=== PATIENT | female | born 1990 | race Caucasian/White ===

== ENCOUNTER 2017-11-24 12:43 | Emergency (ER) | payer BC ==
--- NOTE | 2017-11-24 13:07 | EDM.PDOC ---
ED HPI GENERAL MEDICAL PROBLEM - General Chief Complaint: Lower Extremity Injury/Pain Stated Complaint: RIGHT ANKLE PAIN Time Seen by Provider: 11/24/17 12:45 Source of Information: Reports: Patient History Limitations: Reports: No Limitations - History of Present Illness INITIAL COMMENTS - FREE TEXT/NARRATIVE: HISTORY AND PHYSICAL: History of present illness: Patient is a 27-year-old female who presents to the emergency room with complaints of right ankle pain. She states she was walking down some steps when she stepped wrong and rolled the right ankle. Since that time has had increased pain with ambulation, but is able to ambulate without difficulty. Denies any numbness or tingling to the affected extremity. Denies any previous injury, trauma or surgeries to the affected extremity. Denies hitting her head or any loss of consciousness related to the fall. Review of systems: As per history of present illness and below otherwise all systems reviewed and negative. Past medical history: As per history of present illness and as reviewed below otherwise noncontributory. Surgical history: As per history of present illness and as reviewed below otherwise noncontributory. Social history: No reported history of drug or alcohol abuse. Family history: As per history of present illness and as reviewed below otherwise noncontributory. Physical exam: General: Well-developed and well-nourished 27-year-old female. Alert and oriented. Nontoxic appearing and in no acute distress. HEENT: Atraumatic, normocephalic, pupils reactive, negative for conjunctival pallor or scleral icterus, mucous membranes moist, throat clear, neck supple, nontender, trachea midline. Lungs: Clear to auscultation, breath sounds equal bilaterally, chest nontender. Heart: S1S2, regular, negative for clicks, rubs, or JVD. Abdomen: Soft, nondistended, nontender. Negative for masses or hepatosplenomegaly. Negative for costovertebral tenderness. Pelvis: Stable nontender. Genitourinary: Deferred. Rectal: Deferred. Extremities: Moves all extremities per self without difficulty or deficits. No joint instability noted. Good flexion and extension of the affected extremity. Strong pedal pulse. Capillary refill less than 3 seconds, CMS intact. Mild tenderness to the medial right malleolus. She is negative for cords or calf pain. Neurovascular unremarkable. Neuro: Awake, alert, oriented. Cranial nerves II through XII unremarkable. Cerebellum unremarkable. Motor and sensory unremarkable throughout. Exam nonfocal. X-ray shows no acute dislocation or fracture. There is mild thickening of the distal Achilles tendon which contains punctate calcifications. Will place patient in a stirrup splint and provided with crutches. (History of achilles tendon surgery in past). Stirrup splint and crutches have been given. Supportive care measures were discussed and reviewed with patient. She voices understanding and is agreeable to plan of care. Denies any further questions at this time. Diagnostics: X-ray right ankle Therapeutics: Ice, stirrup splint, crutches Impression: Right ankle injury Plan: 1. X-ray shows no dislocation or fracture. Please use the stirrup splint and crutches for the next 3-5 days. Rest, ice, elevate the extremity. 2. Diclofenac has been prescribed for pain management. You may take this up to 3 times daily. Do not take with any additional NSAID such as ibuprofen or Aleve. Please take with food. Tylenol as needed for pain management. 3. Follow up with her primary caregiver or the orthopedic provider if needed in the next couple days. Return to the ED as needed and as discussed. Definitive disposition and diagnosis as appropriate pending reevaluation and review of above. Onset: Today Duration: Hour(s): Location: Reports: Lower Extremity, Right Right Ankle Pain Score (Numeric/FACES): 7 - Related Data Allergies Allergy/AdvReac Type Severity Reaction Status Date / Time No Known Allergies Allergy Verified 11/24/17 12:54 Home Meds: Home Meds buPROPion HCl [Wellbutrin Xl] 150 mg PO DAILY 11/24/17 [History] Past Medical History HEENT History: Reports: None Cardiovascular History: Reports: None Respiratory History: Reports: None Genitourinary History: Reports: None Musculoskeletal History: Reports: None Neurological History: Reports: None Psychiatric History: Reports: Anxiety Oncologic (Cancer) History: Reports: None - Infectious Disease History Infectious Disease History: Reports: Chicken Pox - Past Surgical History Head Surgeries/Procedures: Reports: None HEENT Surgical History: Reports: Adenoidectomy, Tonsillectomy Female Surgical History: Reports: Section Other Musculoskeletal Surgeries/Procedures:: Right Achilles Tendon Repair 2012 Social & Family History - Family History Family Medical History: Noncontributory - Tobacco Use Smoking Status *Q: Current Every Day Smoker Years of Tobacco use: 6 Packs/Tins Daily: 0.2 Used Tobacco, but Quit: No Second Hand Smoke Exposure: No - Caffeine Use Caffeine Use: Reports: Energy Drinks - Alcohol Use Days Per Week of Alcohol Use: 0 - Recreational Drug Use Recreational Drug Use: No Review of Systems - Review of Systems Review Of Systems: ROS reveals no pertinent complaints other than HPI. ED EXAM, GENERAL - Physical Exam Exam: See Below (See dictation) Course - Vital Signs Last Recorded V/S: Last Vital Signs Temp 97.4 F 11/24/17 12:56 Pulse 77 11/24/17 12:56 Resp 15 11/24/17 12:56 BP 114/59 L 11/24/17 12:56 Pulse Ox 98 11/24/17 12:56 Departure - Departure Time of Disposition: 13:53 Disposition: Home, Self-Care 01 Clinical Impression: Ankle injury Qualifiers: Encounter type: initial encounter Laterality: right Qualified Code(s): S99.911A - Unspecified injury of right ankle, initial encounter - Discharge Information Referrals: Dave Liao MD [Primary Care Provider] - Forms: ED Department Discharge Additional Instructions: The following information is given to patients seen in the emergency department who are being discharged to home. This information is to outline your options for follow-up care. We provide all patients seen in our emergency department with a follow-up referral. The need for follow-up, as well as the timing and circumstances, are variable depending upon the specifics of your emergency department visit. If you don't have a primary care physician on staff, we will provide you with a referral. We always advise you to contact your personal physician following an emergency department visit to inform them of the circumstance of the visit and for follow-up with them and/or the need for any referrals to a consulting specialist. The emergency department will also refer you to a specialist when appropriate. This referral assures that you have the opportunity for follow-up care with a specialist. All of these measure are taken in an effort to provide you with optimal care, which includes your follow-up. Under all circumstances we always encourage you to contact your private physician who remains a resource for coordinating your care. When calling for follow-up care, please make the office aware that this follow-up is from your recent emergency room visit. If for any reason you are refused follow-up, please contact the [facility] Emergency Department at and asked to speak to the emergency department charge nurse. [facility] [address] [place] [id number] 1. X-ray shows no dislocation or fracture. Please use the stirrup splint and crutches for the next 3-5 days. Rest, ice, elevate the extremity. 2. Diclofenac has been prescribed for pain management. You may take this up to 3 times daily. Do not take with any additional NSAID such as ibuprofen or Aleve. Please take with food. Tylenol as needed for pain management. 3. Follow up with her primary caregiver or the orthopedic provider if needed in the next couple days. Return to the ED as needed and as discussed.
--- NOTE | 2017-11-24 13:39 | CR ---
EXAMINATION: Right ankle HISTORY: Pain COMPARISON: 05/26/2016 TECHNIQUE: 3 views FINDINGS/IMPRESSION: There is no acute osseous abnormality, dislocation, or fracture. Bone mineraliza tion, ankle mortise and joint spaces appear preserved. Mild thickening of the distal Achilles tendon containing punctate calcifications, correlate clinically for focal pain.
[2017-11-24 14:04] VITALS: BP 118/63
== END 2017-11-24 14:01 | disposition home or self-care (01) ==
LOC: MW.ED 12:43
DX: S99.911A Unspecified injury of right ankle, initial encounter (principal); F17.210 Nicotine dependence, cigarettes, uncomplicated; Z79.899 Other long term (current) drug therapy; X58.XXXA Exposure to other specified factors, initial encounter
CPT/HCPCS: 73610-26-RT; 73610-RT; 99283

== ENCOUNTER 2018-05-28 18:48 | Emergency (ER) | payer BC ==
[2018-05-28] MEDS ORDERED: Albuterol/Ipratropium 3.0-0.5 MG/3 ML Neb Soln NEB ONE ×2 (19:04→20:10)
--- NOTE | 2018-05-28 19:09 | EDM.PDOC ---
ED HPI GENERAL MEDICAL PROBLEM - General Chief Complaint: Respiratory Problem Stated Complaint: COUGHING AND WHEEZING Time Seen by Provider: 05/28/18 19:07 Source of Information: Reports: Patient History Limitations: Reports: No Limitations - History of Present Illness INITIAL COMMENTS - FREE TEXT/NARRATIVE: HISTORY AND PHYSICAL: History of present illness: Patient is a 28-year-old female here with complaint of wheezing and cough 1 week. She has a history of asthma and states she has been using in her inhaler which does not seem to be helping any longer. She thinks her asthma is exacerbated due to the smoke in the air. She states her chest feels tight but denies any chest pain. Any fevers or chills. She states she had some vomiting and diarrhea yesterday that has since resolved. Review of systems: As per history of present illness and below otherwise all systems reviewed and negative. Past medical history: As per history of present illness and as reviewed below otherwise noncontributory. Surgical history: As per history of present illness and as reviewed below otherwise noncontributory. Social history: No reported history of drug or alcohol abuse. Family history: As per history of present illness and as reviewed below otherwise noncontributory. Physical exam: General: Patient sitting comfortably in no acute distress and nontoxic appearing HEENT: Atraumatic, normocephalic, pupils reactive, negative for conjunctival pallor or scleral icterus, mucous membranes moist, throat clear, neck supple, nontender, trachea midline. No meningeal signs. Lungs: Breath sounds diminished with end expiratory wheezing throughout all lung ruiz, breath sounds equal bilaterally, chest nontender. Heart: S1S2, regular, negative for clicks, rubs, or overt murmur. Abdomen: Soft, nondistended, nontender. Negative for masses or hepatosplenomegaly. Negative for costovertebral tenderness. Pelvis: Stable nontender. Genitourinary: Deferred. Rectal: Deferred. Extremities: Atraumatic, negative for cords or calf pain. Neurovascular unremarkable. Neuro: Awake, alert, oriented. Cranial nerves II through XII unremarkable. Cerebellum unremarkable. Motor and sensory unremarkable throughout. Exam nonfocal. Notes: Patient reports improvement in SOB and chest tightness after second DuoNeb treatment. Diagnostics: Chest x-ray Therapeutics: DuoNeb x 2 Solu-medrol 125mg IM Prescriptions: Medrol dosepak Impression: Asthma exacerbation Plan: 1. Continue rescue inhaler as needed and take medrol dosepak as instructed. 2. Follow up with primary care provider 3. Return to ED as needed as discussed. Definitive disposition and diagnosis as appropriate pending reevaluation and review of above. - Related Data Allergies Allergy/AdvReac Type Severity Reaction Status Date / Time No Known Allergies Allergy Verified 05/28/18 19:03 Home Meds: Home Meds Albuterol [Ventolin HFA] 1 puff INH ASDIRECTED PRN 05/28/18 [History] methylPREDNISolone [Medrol] 4 mg PO ASDIRECTED #1 dospk 05/28/18 [Rx] Past Medical History HEENT History: Reports: None Cardiovascular History: Reports: None Respiratory History: Reports: None Genitourinary History: Reports: None Musculoskeletal History: Reports: None Neurological History: Reports: None Psychiatric History: Reports: Anxiety Oncologic (Cancer) History: Reports: None - Infectious Disease History Infectious Disease History: Reports: Chicken Pox - Past Surgical History Head Surgeries/Procedures: Reports: None HEENT Surgical History: Reports: Adenoidectomy, Tonsillectomy Female Surgical History: Reports: Section Other Musculoskeletal Surgeries/Procedures:: Right Achilles Tendon Repair 2012 Social & Family History - Family History Family Medical History: Noncontributory - Caffeine Use Caffeine Use: Reports: Energy Drinks ED ROS GENERAL - Review of Systems Review Of Systems: ROS reveals no pertinent complaints other than HPI. ED EXAM, GENERAL - Physical Exam Exam: See Below (see dictation) Course - Vital Signs Last Recorded V/S: Last Vital Signs Temp 36.1 C 05/28/18 18:48 Pulse 100 05/28/18 18:48 Resp 18 05/28/18 18:48 BP 113/67 05/28/18 18:48 Pulse Ox 96 05/28/18 18:48 - Orders/Labs/Meds Orders: Active Orders 24 hr Category Date Time Status RT Aerosol Therapy [RC] ASDIRECTED Care 05/28/18 19:04 Active RT Aerosol Therapy [RC] ASDIRECTED Care 05/28/18 20:10 Active Chest 1V Frontal [CR] Stat Exams 05/28/18 19:07 Taken Meds: Medications Discontinued Medications Generic Name Dose Route Start Last Admin Trade Name Freq PRN Reason Stop Dose Admin Albuterol/Ipratropium 3 ml 05/28/18 19:04 05/28/18 19:24 Duoneb 3.0-0.5 Mg/3 Ml NEB 05/28/18 19:05 3 ml ONETIME ONE Administration Albuterol/Ipratropium 3 ml 05/28/18 20:10 05/28/18 20:30 Duoneb 3.0-0.5 Mg/3 Ml NEB 05/28/18 20:11 3 ml ONETIME ONE Administration Methylprednisolone Sodium Succinate 125 mg 05/28/18 20:10 05/28/18 20:26 Solu-Medrol IM 05/28/18 20:11 125 mg ONETIME ONE Administration Departure - Departure Time of Disposition: 20:42 Disposition: Home, Self-Care 01 Condition: Good Clinical Impression: Asthma exacerbation - Discharge Information Prescriptions: methylPREDNISolone [Medrol] 4 mg PO ASDIRECTED #1 dospk Referrals: Dinah López DOCUMENTATION SUPERVISOR [Primary Care Provider] - Forms: ED Department Discharge Additional Instructions: The following information is given to patients seen in the emergency department who are being discharged to home. This information is to outline your options for follow-up care. We provide all patients seen in our emergency department with a follow-up referral. The need for follow-up, as well as the timing and circumstances, are variable depending upon the specifics of your emergency department visit. If you don't have a primary care physician on staff, we will provide you with a referral. We always advise you to contact your personal physician following an emergency department visit to inform them of the circumstance of the visit and for follow-up with them and/or the need for any referrals to a consulting specialist. The emergency department will also refer you to a specialist when appropriate. This referral assures that you have the opportunity for follow-up care with a specialist. All of these measure are taken in an effort to provide you with optimal care, which includes your follow-up. Under all circumstances we always encourage you to contact your private physician who remains a resource for coordinating your care. When calling for follow-up care, please make the office aware that this follow-up is from your recent emergency room visit. If for any reason you are refused follow-up, please contact the [facility] Emergency Department at and asked to speak to the emergency department charge nurse. [facility] [address] [place] [address] [facility] [address] [place] [address] 1. Continue rescue inhaler as needed and take medrol dosepak as instructed. 2. Follow up with primary care provider 3. Return to ED as needed as discussed. - My Orders Last 24 Hours: My Active Orders 05/28/18 19:04 RT Aerosol Therapy [RC] ASDIRECTED 05/28/18 19:07 Chest 1V Frontal [CR] Stat 05/28/18 20:10 RT Aerosol Therapy [RC] ASDIRECTED - Assessment/Plan Last 24 Hours: My Active Orders 05/28/18 19:04 RT Aerosol Therapy [RC] ASDIRECTED 05/28/18 19:07 Chest 1V Frontal [CR] Stat 05/28/18 20:10 RT Aerosol Therapy [RC] ASDIRECTED
[2018-05-28] MEDS ORDERED: methylPREDNISolone Sodium Succinate 125 MG/2 ML SDV IM ONE (20:10)
[2018-05-28 20:51] VITALS: BP 128/60
--- NOTE | 2018-05-30 12:09 | CR ---
EXAM DATE: 05/28/18 PATIENT'S AGE: 28 Patient: LIA JANE Facility: [place], [place] Site . Site : 1990 Study: XRay Chest [id number]/25/2018 8:01:14 PM Ordering Physician: Doctor Meyer Final Report: INDICATION: pain/sob/cough INDICATION: Shortness of breath. TECHNIQUE: Chest 1 view. COMPARISON: None FINDINGS: Cardiovascular and mediastinum: Heart size and vasculature are normal in caliber and appearance. Mediastinum is within normal limits. Lungs and pleural space: Lungs are clear. No sign of infiltrate or mass. No sign of pleural effusion. No pneumothorax. Bones and soft tissues: No significant findings. IMPRESSION: Lungs are clear. Dictated by Josef Simon MD @ 05/28/2018 8:02:51 PM Dictated by: Josef Simon MD @ 05/28/2018 20:02:57 (Electronic Signature) Report Signed by Proxy. REAGAN
== END 2018-05-28 20:51 | disposition home or self-care (01) ==
LOC: MW.ED 18:48
DX: J45.901 Unspecified asthma with (acute) exacerbation (principal)
CPT/HCPCS: 71045; 94640; 96372; 99285; J2930; 99283; J7620-GY

== ENCOUNTER 2019-07-08 19:36 | Emergency (ER) | payer SELFPAY ==
[2019-07-08] MEDS ORDERED: Albuterol/Ipratropium 3.0-0.5 MG/3 ML Neb Soln NEB ONE (19:58)
[2019-07-08] MEDS ORDERED: methylPREDNISolone Sodium Succinate 125 MG/2 ML SDV IM ONE (20:25)
--- NOTE | 2019-07-08 20:31 | CR ---
INDICATION: cough, sob TECHNIQUE: Chest 2 views. COMPARISON: None. FINDINGS: Cardiovascular and mediastinum: Heart size and vasculature are normal in caliber and appearance. Mediastinum is within normal limits. Lungs and pleural spaces: Lungs are clear. No sign of infiltrate or mass. No sign of pleural effusion. No pneumothorax. Bones and soft tissues: No significant findings. IMPRESSION: Unremarkable chest. Dictated by: Richard Tomas MD @ 07/08/2019 20:30:20 (Electronically Signed)
--- NOTE | 2019-07-08 20:43 | EDM.PDOC ---
ED HPI GENERAL MEDICAL PROBLEM - General Chief Complaint: Respiratory Problem Stated Complaint: COLD SYMPTOMS Time Seen by Provider: 07/08/19 19:42 Source of Information: Reports: Patient History Limitations: Reports: No Limitations - History of Present Illness INITIAL COMMENTS - FREE TEXT/NARRATIVE: HISTORY AND PHYSICAL: History of present illness: Agent is a 29-year-old female presenting to the emergency room for cough. Patient states she has been sick for one week with symptoms of productive cough that is greenish to brown/yellow, sinus congestion, ear pain, headache. She states she "started to feel better on Wednesday/Wednesday and then it hit me like a ton of bricks on ". Patient has been taking DayQuil and NyQuil without relief. She states her generalized overall pain is a 5 out of 10 describing it as "just enough to be annoying". She is short of breath. She has been monitoring her temperatures at home and has been having insistent 101 temperatures and subjective chills. She is a smoker, however she stated she was trying to quit prior to her illness, however due to her being so sick she hasn' t been smoking for the past couple days. Patient denies any change in vision, syncope or near syncope. Denies any chest pain or back pain. Denies any abdominal pain, nausea, vomiting, diarrhea, constipation or dysuria. Has not noted any blood in urine or stool. Patient has been eating and drinking appropriately. Review of systems: As per history of present illness and below otherwise all systems reviewed and negative. Past medical history: As per history of present illness and as reviewed below otherwise noncontributory. Surgical history: As per history of present illness and as reviewed below otherwise noncontributory. Social history: See social history for further information Family history: As per history of present illness and as reviewed below otherwise noncontributory. Physical exam: General: Well-nourished and well-developed 29-year-old female. Alert and orientated. Nontoxic in appearance and in no acute distress. Vital signs have been reviewed by me. HEENT: Maxillary and frontal sinuses are tender to palpation, normocephalic, pupils equal and reactive bilaterally, negative for conjunctival pallor or scleral icterus, mucous membranes moist, TMs normal bilaterally, throat clear, neck supple, nontender, trachea midline. No drooling or trismus noted. No meningeal signs. No hot potato voice noted. Lungs: Generalized diminished breath sounds with expiratory wheezing, chest nontender. Heart: S1S2, regular rate and rhythm without overt murmur Abdomen: Soft, nondistended, nontender. Negative for masses or hepatosplenomegaly. Negative for costovertebral tenderness. Skin: Intact, warm, dry. No lesions or rashes noted. Extremities: Atraumatic, moves all extremities per self without difficulty or deficits, negative for cords or calf pain. Neurovascular unremarkable. Neuro: Awake, alert, oriented. Cranial nerves II through XII unremarkable. Cerebellum unremarkable. Motor and sensory unremarkable throughout. Exam nonfocal. Notes: Patient was given a duo neb treatment after assessment. Patient's breath sounds demonstrated inspiratory and expiratory wheezing. She was given Solu-Medrol IM. Supportive care measures were reviewed and discussed. Voices understanding and is agreeable to plan of care. Denies any further questions or concerns at this time. Diagnostics: Two-view chest x-ray Therapeutics: Duo neb, Solu-Medrol IM Prescription: Medrol Dosepak, Z-Tashi, Albuterol HFA Impression: Bronchitis Plan: 1. Please take your medication as directed and as prescribed. 2. Follow-up with her primary care provider 3. Return to the Emergency Room as discussed and as needed. Definitive disposition and diagnosis as appropriate pending reevaluation and review of above. Generalized Pain Score (Numeric/FACES): 6 - Related Data Allergies Allergy/AdvReac Type Severity Reaction Status Date / Time Latex, Natural Rubber Allergy Other Verified 07/08/19 19:45 Home Meds: Home Meds . 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: Musculoskeletal History: Reports: None Neurological History: Reports: None Psychiatric History: Reports: Anxiety Oncologic (Cancer) History: Reports: None - Infectious Disease History Infectious Disease History: Reports: Chicken Pox - Past Surgical History Head Surgeries/Procedures: Reports: None HEENT Surgical History: Reports: Adenoidectomy, Tonsillectomy GI Surgical History: Reports: Appendectomy Female Surgical History: Reports: Section Other Musculoskeletal Surgeries/Procedures:: Right Achilles Tendon Repair 2013 Social & Family History - Family History Family Medical History: Noncontributory - Tobacco Use Smoking Status *Q: Current Every Day Smoker Years of Tobacco use: 10 Packs/Tins Daily: 0.1 - Caffeine Use Caffeine Use: Reports: Energy Drinks - Recreational Drug Use Recreational Drug Use: No ED ROS GENERAL - Review of Systems Review Of Systems: ROS reveals no pertinent complaints other than HPI. ED EXAM, GENERAL - Physical Exam Exam: See Below (See dictation) Course - Vital Signs Last Recorded V/S: Last Vital Signs Temp 96.9 F 07/08/19 19:43 Pulse 99 07/08/19 19:43 Resp 18 07/08/19 19:43 BP 120/81 07/08/19 19:43 Pulse Ox 95 07/08/19 19:43 - Orders/Labs/Meds Orders: Active Orders 24 hr Category Date Time Status RT Aerosol Therapy [RC] ASDIRECTED Care 07/08/19 19:58 Active Meds: Medications Discontinued Medications Generic Name Dose Route Start Last Admin Trade Name Kobe PRN Reason Stop Dose Admin Albuterol/Ipratropium 3 ml 07/08/19 19:58 07/08/19 20:06 Duoneb 3.0-0.5 Mg/3 Ml NEB 07/08/19 19:59 3 ml ONETIME ONE Administration Methylprednisolone Sodium Succinate 125 mg 07/08/19 20:25 Solu-Medrol IM 07/08/19 20:26 ONETIME ONE Departure - Departure Time of Disposition: 20:42 Disposition: Home, Self-Care 01 Clinical Impression: Bronchitis - Discharge Information Instructions: Acute Bronchitis, Adult, [id number] Referrals: Dinah López NP [Primary Care Provider] - Forms: ED Department Discharge Additional Instructions: The following information is given to patients seen in the emergency department who are being discharged to home. This information is to outline your options for follow-up care. We provide all patients seen in our emergency department with a follow-up referral. The need for follow-up, as well as the timing and circumstances, are variable depending upon the specifics of your emergency department visit. If you don't have a primary care physician on staff, we will provide you with a referral. We always advise you to contact your personal physician following an emergency department visit to inform them of the circumstance of the visit and for follow-up with them and/or the need for any referrals to a consulting specialist. The emergency department will also refer you to a specialist when appropriate. This referral assures that you have the opportunity for follow-up care with a specialist. All of these measure are taken in an effort to provide you with optimal care, which includes your follow-up. Under all circumstances we always encourage you to contact your private physician who remains a resource for coordinating your care. When calling for follow-up care, please make the office aware that this follow-up is from your recent emergency room visit. If for any reason you are refused follow-up, please contact the [facility] Emergency Department at and asked to speak to the emergency department charge nurse. [facility] [address] [place], [place] [id number] [place] [address] 1. Please take your medication as directed and as prescribed. 2. Follow-up with her primary care provider 3. Return to the Emergency Room as discussed and as needed. - My Orders Last 24 Hours: My Active Orders 07/08/19 19:58 RT Aerosol Therapy [RC] ASDIRECTED - Assessment/Plan Last 24 Hours: My Active Orders 07/08/19 19:58 RT Aerosol Therapy [RC] ASDIRECTED
[2019-07-08 21:17] VITALS: BP 125/77; PULSE 98
== END 2019-07-08 21:14 | disposition home or self-care (01) ==
LOC: MW.ED 19:36
DX: J40 Bronchitis, not specified as acute or chronic (principal); F17.210 Nicotine dependence, cigarettes, uncomplicated; Z91.040 Latex allergy status
CPT/HCPCS: 71046; 94640; 96372; 99283; J2930; J7620-GY

== ENCOUNTER 2022-01-02 10:21 | Emergency (ER) | payer BC ==
[2022-01-02 12:15] LABS: BLOOD UREA NITROGEN,BUN 9 mg/dL (7.0-18.0); CARBON DIOXIDE,CO2 24.5 mmol/L (21.0-32.0); CHLORIDE,CL 102 mmol/L (98-107); GLUCOSE RANDOM 100 mg/dL (74-106); POTASSIUM,K 3.7 mmol/L (3.5-5.1); SODIUM,NA 139 mmol/L (136-145)
[2022-01-02 12:34] VITALS: BP 122/62; PULSE 73
== END 2022-01-02 12:27 | disposition home or self-care (01) ==
LOC: MW.ED 10:21
DX: O20.0 Threatened abortion (principal); Z3A.01 Less than 8 weeks gestation of pregnancy; Z91.040 Latex allergy status
CPT/HCPCS: 36415; 76801; 76801-26; 80053; 81001; 84702; 85025; 86900; 86901; 99282; 99284-25

== ENCOUNTER 2022-06-12 09:09 | Emergency (ER) | payer BC ==
[2022-06-12 11:30] VITALS: PULSE 75
[2022-06-12 15:01] VITALS: BP 128/65
== END 2022-06-12 14:12 | disposition home or self-care (01) ==
LOC: MW.ED 09:09
DX: O9A.23 Injury, poisoning and certain other consequences of external causes complicating the puerperium (principal); S86.011A Strain of right Achilles tendon, initial encounter; Z91.040 Latex allergy status; Z86.16 Personal history of COVID-19; Z3A.09 9 weeks gestation of pregnancy; X50.1XXA Overexertion from prolonged static or awkward postures, initial encounter
CPT/HCPCS: 99283

== ENCOUNTER 2022-08-16 09:35 | Emergency (ER) | payer BC ==
[2022-08-16] MEDS ORDERED: Sodium Chloride 0.9% 10 ML Syringe FLUSH PRN (09:46)
[2022-08-16] MEDS ORDERED: Sodium Chloride 0.9% 2.5 ML Syringe FLUSH PRN (09:46)
[2022-08-16 10:28] VITALS: PULSE 95
[2022-08-16 10:30] LABS: CARBON DIOXIDE,CO2 25.2 mmol/L (21.0-32.0); POTASSIUM,K 3.8 mmol/L (3.5-5.1)
[2022-08-16 13:14] VITALS: BP 125/56
== END 2022-08-16 13:13 | disposition home or self-care (01) ==
LOC: MW.ED 09:35
DX: O47.02 False labor before 37 completed weeks of gestation, second trimester (principal); O99.891 Other specified diseases and conditions complicating pregnancy; R32 Unspecified urinary incontinence; O99.512 Diseases of the respiratory system complicating pregnancy, second trimester; J45.909 Unspecified asthma, uncomplicated; Z91.040 Latex allergy status; Z86.16 Personal history of COVID-19; Z3A.18 18 weeks gestation of pregnancy
CPT/HCPCS: 36415; 76815; 80053; 81003; 83735; 85025; 99284; J3490

== ENCOUNTER 2023-01-03 17:15 | Emergency (ER) | payer BC ==
[2023-01-03 18:41] VITALS: BP 126/68; PULSE 87
== END 2023-01-03 18:41 | disposition home or self-care (01) ==
LOC: MW.ED 17:15
DX: O90.0 Disruption of cesarean delivery wound (principal); Z91.040 Latex allergy status; Z86.16 Personal history of COVID-19
CPT/HCPCS: 99283

== ENCOUNTER 2024-05-08 19:50 | Emergency (ER) | payer BC ==
[2024-05-08] MEDS: Acetaminophen 500 MG Tab PO STA (20:41)
[2024-05-08] MEDS: oxyCODONE 5 MG Tab PO STA ×2 (20:41→23:03)
[2024-05-08] MEDS: Ibuprofen 800 MG Tab PO STA (20:42)
[2024-05-08 23:47] VITALS: BP 110/70; PULSE 68
== END 2024-05-08 23:30 | disposition home or self-care (01) ==
LOC: MW.ED 19:50
DX: S99.911A Unspecified injury of right ankle, initial encounter (principal); Z91.040 Latex allergy status; Z75.8 Other problems related to medical facilities and other health care; X50.9XXA Other and unspecified overexertion or strenuous movements or postures, initial encounter; Y93.64 Activity, baseball
CPT/HCPCS: 29515; 73610; 99283; A9270

== ENCOUNTER 2025-01-21 17:28 | Emergency (ER) | payer BC ==
[2025-01-21] MEDS: Ondansetron 4 MG/2 ML SDV IVPUSH ONE (17:44)
[2025-01-21] MEDS: Sodium Chloride 0.9% 1,000 ML IV ONE (17:44)
[2025-01-21 17:55] LABS: BASOPHILS ABSOLUTE AUTO 0.05 K/uL (0.00-0.20); BASOPHILS PERCENT AUTO 0.4 % (0.0-1.0); EOSINOPHILS ABSOLUTE AUTO 0.14 K/uL (0.00-0.45); HEMATOCRIT 47.5 % (37.0-47.0); HEMOGLOBIN 16.9 g/dL (12.0-16.0); IMMATURE GRAN ABSOLUTE AUTO 0.07 K/uL (0.00-0.05); IMMATURE GRAN PERCENT AUTO 0.5 % (0.0-0.4); LYMPHOCYTES ABSOLUTE AUTO 1.27 K/uL (1.00-4.80); LYMPHOCYTES PERCENT AUTO 9.4 % (24.0-44.0); MEAN CORPUSCULAR HGB CONC 35.6 g/dL (32.0-36.0); MEAN CORPUSCULAR VOLUME 84.4 fL (83.0-99.0); MONOCYTES ABSOLUTE AUTO 0.57 K/uL (0.00-0.80); MONOCYTES PERCENT AUTO 4.2 % (0.0-8.0); NEUTROPHILS ABSOLUTE AUTO 11.44 K/uL (1.80-7.70); NEUTROPHILS PERCENT AUTO 84.5 % (41.0-71.0); PLATELET COUNT,PLT 228 K/uL (150-400); RED BLOOD CELL COUNT 5.63 M/uL (4.10-5.30); WHITE BLOOD CELL COUNT,WBC 13.54 K/uL (3.9-11.3)
[2025-01-21 18:18] LABS: ALBUMIN 3.7 g/dL (3.4-5.0); BILIRUBIN TOTAL 0.6 mg/dL (0.2-1.0); CALCIUM 8.5 mg/dL (8.5-10.1); CARBON DIOXIDE,CO2 23.3 mmol/L (21.0-32.0); CREATININE 0.8 mg/dL (0.6-1.0); EST CRCL DRUG DOSING (CG) 89.16 mL/min; PROTEIN TOTAL,TP 7.4 g/dL (6.4-8.2)
[2025-01-21 18:31] LABS: APPEARANCE,URINE CLEAR; BILIRUBIN,URINE NEGATIVE (NEGATIVE); COLOR,URINE YELLOW; GLUCOSE,URINE NEGATIVE (NEGATIVE); KETONES,URINE NEGATIVE (NEGATIVE); LEUKOCYTE ESTERASE,URINE NEGATIVE (NEGATIVE); NITRITE,URINE NEGATIVE (NEGATIVE); OCCULT BLOOD,URINE NEGATIVE (NEGATIVE); PROTEIN,URINE NEGATIVE (NEGATIVE); UROBILINOGEN,URINE 0.2 EU/dL (<2.0)
[2025-01-21 19:08] VITALS: BP 135/72; PULSE 115
== END 2025-01-21 19:07 | disposition home or self-care (01) ==
LOC: MW.ED 17:28
DX: O98.511 Other viral diseases complicating pregnancy, first trimester (principal); A08.4 Viral intestinal infection, unspecified; Z91.040 Latex allergy status; Z79.899 Other long term (current) drug therapy; Z75.3 Unavailability and inaccessibility of health-care facilities; Z3A.01 Less than 8 weeks gestation of pregnancy
CPT/HCPCS: 36415; 80053; 81003; 83690; 84702; 85025; 87428; 96361; 96374; 99284; J2405; J7030; 99283

== ENCOUNTER 2025-03-14 22:20 | Emergency (ER) | payer BC ==
[2025-03-14 22:52] LABS: BASOPHILS ABSOLUTE AUTO 0.06 K/uL (0.00-0.20); BASOPHILS PERCENT AUTO 0.5 % (0.0-1.0); EOSINOPHILS ABSOLUTE AUTO 0.26 K/uL (0.00-0.45); EOSINOPHILS PERCENT AUTO 2.1 % (0.0-6.0); IMMATURE GRAN ABSOLUTE AUTO 0.06 K/uL (0.00-0.05); IMMATURE GRAN PERCENT AUTO 0.5 % (0.0-0.4); LYMPHOCYTES ABSOLUTE AUTO 3.21 K/uL (1.00-4.80); LYMPHOCYTES PERCENT AUTO 25.5 % (24.0-44.0); MEAN CORPUSCULAR HEMOGLOBIN 30.1 pg (28.0-32.0); MEAN CORPUSCULAR HGB CONC 35.9 g/dL (32.0-36.0); MEAN CORPUSCULAR VOLUME 83.9 fL (83.0-99.0); MEAN PLATELET VOLUME 10.1 fL (9.4-12.3); MONOCYTES ABSOLUTE AUTO 0.89 K/uL (0.00-0.80); MONOCYTES PERCENT AUTO 7.1 % (0.0-8.0); NEUTROPHILS ABSOLUTE AUTO 8.13 K/uL (1.80-7.70); NEUTROPHILS PERCENT AUTO 64.3 % (41.0-71.0); PLATELET COUNT,PLT 220 K/uL (150-400); RED BLOOD CELL COUNT 4.65 M/uL (4.10-5.30); WHITE BLOOD CELL COUNT,WBC 12.61 K/uL (3.9-11.3)
[2025-03-14 23:49] LABS: A/G RATIO 0.9 (0.9-1.6); ALBUMIN 3.3 g/dL (3.4-5.0); BILIRUBIN TOTAL 0.2 mg/dL (0.2-1.0); CALCIUM 9.1 mg/dL (8.5-10.1); CARBON DIOXIDE,CO2 25.5 mmol/L (21.0-32.0); CREATININE 0.8 mg/dL (0.6-1.0); EST CRCL DRUG DOSING (CG) 89.16 mL/min; POTASSIUM,K 3.5 mmol/L (3.5-5.1); PROTEIN TOTAL,TP 6.9 g/dL (6.4-8.2)
[2025-03-14 23:52] VITALS: BP 140/55; PULSE 75
== END 2025-03-15 00:22 | disposition home or self-care (01) ==
LOC: MW.ED 22:20
DX: O20.8 Other hemorrhage in early pregnancy (principal); Z91.040 Latex allergy status; Z79.899 Other long term (current) drug therapy; Z3A.12 12 weeks gestation of pregnancy
CPT/HCPCS: 36415; 76817; 76817-26; 80053; 81025; 84702; 85025; 99283; 99284

== ENCOUNTER 2025-03-25 22:55 | Emergency (ER) | payer BC ==
[2025-03-25 23:21] VITALS: BP 143/75; PULSE 95
[2025-03-26 02:07] LABS: BILIRUBIN,URINE NEGATIVE (NEGATIVE); COLOR,URINE YELLOW; GLUCOSE,URINE NEGATIVE (NEGATIVE); KETONES,URINE NEGATIVE (NEGATIVE); LEUKOCYTE ESTERASE,URINE NEGATIVE (NEGATIVE); NITRITE,URINE NEGATIVE (NEGATIVE); OCCULT BLOOD,URINE LARGE (NEGATIVE); PROTEIN,URINE NEGATIVE (NEGATIVE); UROBILINOGEN,URINE 0.2 EU/dL (<2.0)
[2025-03-26 02:08] LABS: APPEARANCE,URINE SLT CLOUDY; BACTERIA,URINE FEW (NEGATIVE); MUCUS,URINE LIGHT (NONE-MOD); RBC,URINE 20-30 (0-2/HPF); SQUAMOUS EPITHELIAL CELLS,UR FEW; WBC,URINE 0-2 (0-5/HPF)
== END 2025-03-26 02:45 | disposition home or self-care (01) ==
LOC: MW.ED 22:55
DX: O46.8X1 Other antepartum hemorrhage, first trimester (principal); Z3A.13 13 weeks gestation of pregnancy; Z91.040 Latex allergy status; Z79.899 Other long term (current) drug therapy
CPT/HCPCS: 81001; 99283; 99284